=== PATIENT | male | born 1980 | race Caucasian/White ===

== ENCOUNTER 2023-08-24 13:40 | Observation (INO) | payer OTHER ==
--- NOTE | 2023-08-24 13:53 | ED ---
General Adult HPI - General Chief complaint: Abdominal Pain Stated complaint: abd pain Time Seen by Provider: 08/24/23 13:51 Source: patient, RN notes reviewed Mode of arrival: EMS - History of Present Illness Initial comments: 43-year-old male presents to the emergency department for evaluation of abdominal pain with nausea and vomiting. Patient diagnosed with colitis last wee k at [facility]. He had a follow up appointment scheduled for today but was unable to make it due to the pain and vomiting. Patient reports that the pain is diffuse in nature and comes in waves. He states that this is associated with nausea and vomiting. Last bowel movement was yesterday. He does admit to kratom use, last use was yesterday. - Related Data Home Medications Medication Instructions Recorded Confirmed Amoxic-Pot Clav 875-125Mg 1 tab PO Q12HR 08/24/23 08/24/23 [Augmentin 875-125] Ondansetron Odt [Zofran Odt] 4 mg PO Q8HR PRN 08/24/23 08/24/23 Prochlorperazine [Compazine] 10 mg PO Q6H PRN 08/24/23 08/24/23 QUEtiapine FUMARATE [SEROquel XR] 150 mg PO HS 08/24/23 08/24/23 QUEtiapine FUMARATE [SEROquel XR] 300 mg PO HS 08/24/23 08/24/23 QUEtiapine [SEROquel] 25 mg PO DAILY 08/24/23 08/24/23 QUEtiapine [SEROquel] 100 mg PO DAILY 08/24/23 08/24/23 Sucralfate [Carafate] 1 gm PO ACHS 08/24/23 08/24/23 clonazePAM [KlonoPIN] 1 mg PO BID PRN 08/24/23 08/24/23 Allergies Allergy/AdvReac Type Severity Reaction Status Date / Time venom-honey bee Allergy Unknown Verified 08/24/23 17:06 [bee venom (honey bee)] Review of Systems ROS Statement: Those systems with pertinent positive or pertinent negative responses have been documented in the HPI. ROS Other: All systems not noted in ROS Statement are negative. Past Medical History Past Medical History: Fibromyalgia, GERD/Reflux, GI Bleed, Renal Disease, Skin Disorder Additional Past Medical History / Comment(s): 09/17/[address] [facility] [place] [facility] with sharp anterior chest pain. He is being admitted with clinical impression of chest pain. 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 colitis History of Any Multi-Drug Resistant Organisms: None Reported Past Surgical History: Heart Catheterization Additional Past Surgical History / Comment(s): 03/2014 normal cardiac cath, urethral repair after tear from kidney stone, nasal reconstruction pmh due to frequent nose bleeds. Past Anesthesia/Blood Transfusion Reactions: No Reported Reaction Additional Past Anesthesia/Blood Transfusion Reaction / Comment(s): patient has never had blood tranfusion Past Psychological History: Anxiety, Depression, Panic Disorder, Schizoaffective Disorder, Schizophrenia Past Alcohol Use History: Occasional Past Drug Use History: Heroin, Marijuana, Methamphetamine, Opiates - Past Family History Father History Unknown: Yes Family Medical History: Hypertension Mother Family Medical History: Diabetes Mellitus, Hypertension Additional Family Medical History / Comment(s): Mother is alive and is 65 yrs. old. Brother(s) Additional Family Medical History / Comment(s): Half brothers x 2 have had ablations for WPW General Exam - General Exam Comments Initial Comments: Visual Physical Exam Vital signs reviewed General: Well-appearing, nontoxic, no acute distress. Head: Normocephalic, atraumatic Eyes: PERRLA, EOMI ENT: Airway patent Chest: Nonlabored breathing Skin: No visual rash, normal skin tone Neuro: Alert and oriented 3 Musculoskeletal: No gross abnormalities Limitations: no limitations General appearance: alert, in distress (d/t pain) Head exam: Present: atraumatic, normocephalic, normal inspection Eye exam: Present: normal appearance, PERRL, EOMI. Absent: scleral icterus, conjunctival injection, periorbital swelling ENT exam: Present: normal exam, mucous membranes moist Neck exam: Present: normal inspection. Absent: tenderness, meningismus, lymphadenopathy Respiratory exam: Present: normal lung sounds bilaterally. Absent: respiratory distress, wheezes, rales, rhonchi, stridor Cardiovascular Exam: Present: regular rate, normal rhythm, normal heart sounds. Absent: systolic murmur, diastolic murmur, rubs, gallop, clicks GI/Abdominal exam: Present: soft, tenderness (Diffuse), normal bowel sounds. Absent: distended, guarding, rebound, rigid Extremities exam: Present: normal inspection, full ROM, normal capillary refill. Absent: tenderness, pedal edema, joint swelling, calf tenderness Back exam: Present: normal inspection Neurological exam: Present: alert, oriented X3 Psychiatric exam: Present: normal affect, normal mood Skin exam: Present: warm, dry, intact, normal color. Absent: rash Course Vital Signs 08/24/23 08/24/23 13:42 15:07 Temperature 98.2 F 98.1 F Pulse Rate 67 54 L Respiratory 18 20 Rate Blood Pressure 104/58 140/75 O2 Sat by Pulse 100 100 Oximetry Medical Decision Making - Medical Decision Making Was pt. sent in by a medical professional or institution (, PA, FIBERGL[employer] DOWEL DRAWING OPERATOR, urgent care, hospital, or fpc...) When possible be specific @ -No Did you speak to anyone other than the patient for history (EMS, parent, family, police, friend...)? What history was obtained from this source @ -No Did you review nursing and triage notes (agree or disagree)? Why? @ -I reviewed and agree with nursing and triage notes Were old charts reviewed (outside hosp., previous admission, EMS record, old EKG, old radiological studies, urgent care reports/EKG's, fpc records)? Report findings @ -No old charts were reviewed Differential Diagnosis (chest pain, altered mental status, abdominal pain women, abdominal pain men, vaginal bleeding, weakness, fever, dyspnea, syncope, headache, dizziness, GI bleed, back pain, seizure, CVA, palpatations, mental h ealth, musculoskeletal)? @ -Differential Abdominal Pain Men: Appendicitis, cholecystitis, diverticulosis, ischemic bowel, pancreatitis, hepatitis, UTI, gastroenteritis, AAA, incarcerated hernia, bowel obstruction, constipation, inflammatory bowel, hepatitis, peptic ulcer disease, splenic infarction, perforated viscus, testicular torsion, this is not meant to be an all-inclusive list EKG interpreted by me (3pts min.). @ -None X-rays interpreted by me (1pt min.). @ -None done CT interpreted by me (1pt min.). @ -CT abdomen pelvis shows possible focal ileus in inferior pelvis U/S interpreted by me (1pt. min.). @ -None done What testing was considered but not performed or refused? (CT, X-rays, U/S, labs)? Why? @ -None What meds were considered but not given or refused? Why? @ -None Did you discuss the management of the patient with other professionals (professionals i.e. DrSilke, PA, FIBERGL[employer] DOWEL DRAWING OPERATOR, lab, RT, psych nurse, social services designee, international representative, teacher, parking regulation enforcement officer, disease case manager rn)? Give summary @ -Case discussed with Dr. White who is accepting of the admission for intractable vomiting Was smoking cessation discussed for >3mins.? @ -No Was critical care preformed (if so, how long)? @ -No Were there social determinants of health that impacted care today? How? (Homelessness, low income, unemployed, alcoholism, drug addiction, transportation, low edu. Level, literacy, decrease access to med. care, snf, rehab)? @ -No Was there de-escalation of care discussed even if they declined (Discuss DNR or withdrawal of care, Hospice)? DNR status @ -No What co-morbidities impacted this encounter? (DM, HTN, Smoking, COPD, CAD, Cancer, CVA, ARF, Chemo, Hep., AIDS, mental health diagnosis, sleep apnea, morbid obesity)? @ -drug use Was patient admitted / discharged? Hospital course, mention meds given and route, prescriptions, significant lab abnormalities, going to OR and other pertinent info. @ -Admitted. Patient presented to the emergency department for evaluation of abdominal pain. Laboratory studies obtained. CBC shows WBC 6.3, hemoglobin 13.7; CMP shows sodium 140, potassium 3.5, creatinine 0.83, lipase 84; UA shows trace protein; UDS positive for marijuana and tricyclic antidepressants. CT abdomen pelvis obtained which shows a possible focal ileus in the inferior pelvis. Patient received Toradol, Zofran, Compazine, Reglan, morphine for his symptoms which persist. Patient will be admitted to the hospital for intractable abdominal pain and nausea and vomiting. Case was discussed with Dr. Portillo with [facility] who is accepting of the admission. Patient stable at time of admission. Case discussed with Dr. Steward. Undiagnosed new problem with uncertain prognosis? @ -No Drug Therapy requiring intensive monitoring for toxicity (Heparin, Nitro, Ins ulin, Cardizem)? @ -No Were any procedures done? @ -No Diagnosis/symptom? @ -intractable nausea vomiting Acute, or Chronic, or Acute on Chronic? @ -Acute Uncomplicated (without systemic symptoms) or Complicated (systemic symptoms)? @ -Uncomplicated Side effects of treatment? @ -No Exacerbation, Progression, or Severe Exacerbation? @ -No Poses a threat to life or bodily function? How? (Chest pain, [place], [place], pneumonia, PE, COPD, DKA, ARF, appy, cholecystitis, CVA, Diverticulitis, Homicidal, Suicidal, threat to staff... and all critical care pts) @ -No - Lab Data Result diagrams: 08/24/23 14:40 08/24/23 14:40 Lab Results 08/24/23 08/24/23 08/24/23 Range/Units 14:40 14:40 14:40 WBC 6.3 (3.8-10.6) k/uL RBC 4.26 L (4.30-5.90) m/uL Hgb 13.7 (13.0-17.5) gm/dL Hct 39.7 (39.0-53.0) % MCV 93.3 (80.0-100.0) fL MCH 32.2 (25.0-35.0) pg MCHC 34.5 (31.0-37.0) g/dL RDW 12.0 (11.5-15.5) % Plt Count 202 (150-450) k/uL MPV 9.6 Neutrophils % 82 % Lymphocytes % 9 % Monocytes % 7 % Eosinophils % 1 % Basophils % 1 % Neutrophils # 5.2 (1.3-7.7) k/uL Lymphocytes # 0.6 L (1.0-4.8) k/uL Monocytes # 0.4 (0-1.0) k/uL Eosinophils # 0.1 (0-0.7) k/uL Basophils # 0.0 (0-0.2) k/uL Sodium 140 (137-145) mmol/L Potassium 3.5 (3.5-5.1) mmol/L Chloride 105 (98-107) mmol/L Carbon Dioxide 26 (22-30) mmol/L Anion Gap 9 mmol/L BUN 6 L (9-20) mg/dL Creatinine 0.83 (0.66-1.25) mg/dL Est GFR (CKD-EPI)AfAm >90 (>60 ml/min/1.73 sqM) Est GFR (CKD-EPI)NonAf >90 (>60 ml/min/1.73 sqM) Glucose 111 H (74-99) mg/dL Plasma Lactic Acid García 1.8 (0.7-2.0) mmol/L Calcium 9.4 (8.4-10.2) mg/dL Total Bilirubin 0.6 (0.2-1.3) mg/dL AST 23 (17-59) U/L ALT 23 (4-49) U/L Alkaline Phosphatase 61 (38-126) U/L Total Protein 6.9 (6.3-8.2) g/dL Albumin 4.2 (3.5-5.0) g/dL Amylase 60 (30-110) U/L Lipase 84 (23-300) U/L Urine Color Urine Appearance (Clear) Urine pH (5.0-8.0) Ur Specific [place] (1.001-1.035) Urine Protein (Negative) Urine Glucose (UA) (Negative) Urine Ketones (Negative) Urine Blood (Negative) Urine Nitrite (Negative) Urine Bilirubin (Negative) Urine Urobilinogen (<2.0) mg/dL Ur Leukocyte Esterase (Negative) Amorphous Sediment (None) /hpf Urine Mucus (None) /hpf Urine Opiates Screen (NotDetected) Ur Oxycodone Screen (NotDetected) Urine Methadone Screen (NotDetected) Ur Barbiturates Screen (NotDetected) U Tricyclic Antidepress (NotDetected) Ur Phencyclidine Scrn (NotDetected) Ur Amphetamines Screen (NotDetected) U Methamphetamines Scrn (NotDetected) U Benzodiazepines Scrn (NotDetected) Urine Cocaine Screen (NotDetected) U Marijuana (THC) Screen (NotDetected) 08/24/23 Range/Units 14:40 WBC (3.8-10.6) k/uL RBC (4.30-5.90) m/uL Hgb (13.0-17.5) gm/dL Hct (39.0-53.0) % MCV (80.0-100.0) fL MCH (25.0-35.0) pg MCHC (31.0-37.0) g/dL RDW (11.5-15.5) % Plt Count (150-450) k/uL MPV Neutrophils % % Lymphocytes % % Monocytes % % Eosinophils % % Basophils % % Neutrophils # (1.3-7.7) k/uL Lymphocytes # (1.0-4.8) k/uL Monocytes # (0-1.0) k/uL Eosinophils # (0-0.7) k/uL Basophils # (0-0.2) k/uL Sodium (137-145) mmol/L Potassium (3.5-5.1) mmol/L Chloride (98-107) mmol/L Carbon Dioxide (22-30) mmol/L Anion Gap mmol/L BUN (9-20) mg/dL Creatinine (0.66-1.25) mg/dL Est GFR (CKD-EPI)AfAm (>60 ml/min/1.73 sqM) Est GFR (CKD-EPI)NonAf (>60 ml/min/1.73 sqM) Glucose (74-99) mg/dL Plasma Lactic Acid García (0.7-2.0) mmol/L Calcium (8.4-10.2) mg/dL Total Bilirubin (0.2-1.3) mg/dL AST (17-59) U/L ALT (4-49) U/L Alkaline Phosphatase (38-126) U/L Total Protein (6.3-8.2) g/dL Albumin (3.5-5.0) g/dL Amylase (30-110) U/L Lipase (23-300) U/L Urine Color Yellow Urine Appearance Turbid (Clear) Urine pH 8.5 H (5.0-8.0) Ur Specific [place] 1.017 (1.001-1.035) Urine Protein Trace H (Negative) Urine Glucose (UA) Negative (Negative) Urine Ketones Negative (Negative) Urine Blood Negative (Negative) Urine Nitrite Negative (Negative) Urine Bilirubin Negative (Negative) Urine Urobilinogen <2.0 (<2.0) mg/dL Ur Leukocyte Esterase Negative (Negative) Amorphous Sediment Occasional H (None) /hpf Urine Mucus Many H (None) /hpf Urine Opiates Screen Not Detected (NotDetected) Ur Oxycodone Screen Not Detected (NotDetected) Urine Methadone Screen Not Detected (NotDetected) Ur Barbiturates Screen Not Detected (NotDetected) U Tricyclic Antidepress Detected H (NotDetected) Ur Phencyclidine Scrn Not Detected (NotDetected) Ur Amphetamines Screen Not Detected (NotDetected) U Methamphetamines Scrn Not Detected (NotDetected) U Benzodiazepines Scrn Not Detected (NotDetected) Urine Cocaine Screen Not Detected (NotDetected) U Marijuana (THC) Screen Detected H (NotDetected) Disposition Clinical Impression: Ileus, Intractable nausea and vomiting Disposition: ADMITTED IP TO THIS [facility] Condition: Stable Is patient prescribed a controlled substance at d/c from ED?: No Referrals: Gagan Muñiz MD [REFERRING] - 1-2 days
[2023-08-24] MEDS ORDERED: KETOROLAC 15 MG/ML 1 ML VIAL IVP STA (14:29)
[2023-08-24] MEDS ORDERED: PROCHLORPERAZINE INJ 10 MG/2 ML VIAL IVP STA (14:29)
[2023-08-24 14:49] LABS: Basophils % (A) 1 %; Eosinophils # (A) 0.1 k/uL (0-0.7); Eosinophils % (A) 1 %; HCT 39.7 % (39.0-53.0); HGB 13.7 gm/dL (13.0-17.5); Lymphocytes # (A) 0.6 k/uL (1.0-4.8); Lymphocytes % (A) 9 %; MCH 32.2 pg (25.0-35.0); MCHC 34.5 g/dL (31.0-37.0); MCV 93.3 fL (80.0-100.0); Mean Platelet Volume 9.6; Monocytes # (A) 0.4 k/uL (0-1.0); Monocytes % (A) 7 %; Neutrophils # (A) 5.2 k/uL (1.3-7.7); Neutrophils % (A) 82 %; Platelet Count 202 k/uL (150-450); RBC 4.26 m/uL (4.30-5.90); WBC 6.3 k/uL (3.8-10.6)
[2023-08-24 15:09] LABS: ALT 23 U/L (4-49); AST 23 U/L (17-59); African American GFR (CKD) >90 (>60 ml/min/1.73 sqM); Albumin 4.2 g/dL (3.5-5.0); Alkaline Phosphatase 61 U/L (38-126); Amylase 60 U/L (30-110); Anion Gap 9 mmol/L; Blood Urea Nitrogen 6 mg/dL (9-20); Calcium 9.4 mg/dL (8.4-10.2); Carbon Dioxide 26 mmol/L (22-30); Chloride 105 mmol/L (98-107); Glucose 111 mg/dL (74-99); Lipase 84 U/L (23-300); Non-African American GFR(CKD) >90 (>60 ml/min/1.73 sqM); Potassium 3.5 mmol/L (3.5-5.1); Sodium 140 mmol/L (137-145); Total Bilirubin 0.6 mg/dL (0.2-1.3); Total Protein 6.9 g/dL (6.3-8.2)
[2023-08-24] MEDS ORDERED: SODIUM CHLORIDE 0.9% 2,000 ML IV ONE (15:09)
[2023-08-24] MEDS ORDERED: MORPHINE SULFATE 2 MG/ML SYRINGE IVP ONE (15:44)
[2023-08-24] MEDS ORDERED: LORazepam 2 MG/ML INJ IV STA (15:44)
[2023-08-24 15:55] LABS: Amorphous Sediment,Urine Occasional /hpf; Appearance,Urine Turbid (Clear); Bilirubin,Urine Negative (Negative); Blood,Urine Negative (Negative); Color,Urine Yellow; Glucose,Urine (UA) Negative (Negative); Ketones,Urine Negative (Negative); Leukocyte Esterase,Urine Negative (Negative); Mucus,Urine Many /hpf; Nitrite,Urine Negative (Negative); PH, Urine 8.5 (5.0-8.0); Protein,Urine Trace (Negative); Specific Gravity,Urine 1.017 (1.001-1.035); Urobilinogen,Urine <2.0 mg/dL (<2.0)
[2023-08-24 16:03] LABS: Amphetamine Screen,Urine Not Detected (NotDetected); Barbiturate Screen,Urine Not Detected (NotDetected); Benzodiazepines Screen,Urine Not Detected (NotDetected); Cocaine Screen,Urine Not Detected (NotDetected); Methadone Screen, Urine Not Detected (NotDetected); Opiate Screen,Urine Not Detected (NotDetected); Oxycodone Screen, Urine Not Detected (NotDetected); Phencyclidine Screen,Urine Not Detected (NotDetected); Tricyclic Antidepressant,Urine Detected (NotDetected); Urn Cannabinoid Scrn Detected (NotDetected)
--- NOTE | 2023-08-24 16:32 | CT ---
EXAMINATION TYPE: CT abdomen pelvis w con DATE OF EXAM: 08/24/2023 COMPARISON: 03/24/2015 INDICATION: abdominal pain, nausea DLP: 638.6 mGycm, Automated exposure control for dose reduction was used. CONTRAST: 100 mL of Isovue 300. Study performed without Oral Contrast TECHNIQUE: Axial images were obtained from above the diaphragm to the pubic rami in the axial plane a t 5 mm thick sections. Reconstructed images are reviewed on the computer in the coronal plane. FINDINGS: Limited CT sections are obtained the lung bases. The lung bases are clear. CT ABDOMEN: Liver: Normal Spleen: Normal Pancreas: Normal Adrenal glands: The adrenal glands are normal. Gallbladder: Normal Kidneys: No masses are evident. No hydronephrosis is present. No cysts are present. Delayed images were obtained through the kidneys, which remain unremarkable. Aorta: Normal Inferior vena cava: Normal. CT PELVIS: Loops of bowel within the abdomen and pelvis are normal. There are some small bowel loops within the posterior inferior pelvis containing fluid could be some focal ileus. No obstruction is evident. Appendix: Not identified. No dilated tubular structures or inflammatory changes to suggest acute dive rticulitis. Urinary bladder: Normal. Genitourinary structures: Prostate appears normal Osseous structures: No suspicious lytic or sclerotic lesions. IMPRESSION: 1. Mild focal ileus within the inferior posterior pelvis may be present. Bowel otherwise appears unr emarkable. 2. No additional acute abdomen or pelvic abnormality identified.
[2023-08-24] MEDS ORDERED: METOCLOPRAMIDE 5 MG/ML 2 ML VIAL IVP STA (17:22)
[2023-08-24] MEDS ORDERED: ACETAMINOPHEN TAB 325 MG TAB PO PRN (18:14)
[2023-08-24] MEDS ORDERED: IBUPROFEN 400 MG TAB PO PRN (18:14)
[2023-08-24] MEDS ORDERED: NALOXONE 0.4 MG/ML 1 ML VIAL IV PRN (18:14)
[2023-08-24] MEDS: SODIUM CHLORIDE 0.9% 1,000 ML IV SCH (20:05)
[2023-08-24] MEDS ORDERED: clonazePAM 1 MG TAB PO PRN (22:26)
[2023-08-24] MEDS ORDERED: QUEtiapine 100 MG TAB PO SCH (22:30)
[2023-08-24] MEDS ORDERED: QUETIAPINE FUMARATE 150 MG PO SCH (22:30)
[2023-08-24] MEDS: KETOROLAC 15 MG/ML 1 ML VIAL IVP PRN (22:36)
[2023-08-25] MEDS: MORPHINE SULFATE 4 MG/ML SYRINGE IV PRN ×3 (00:26→07:54)
--- NOTE | 2023-08-25 02:31 | P.HPIM ---
History of Present Illness H&P Date: 08/24/23 Chief Complaint: Nausea vomiting 43-year-old male coming in due to repeated nausea vomiting. He reports that his symptoms started over the weekend where on Tuesday he went to [facility] was diagnosed with colitis he was eventually discharged and was given some antibiotics. His symptoms continue to progress he was supposed to go follow-up with them today however due to repeated nausea vomiting and abdominal pain he decided to come in here which we were nearest hospital.. Denies any fevers or chills however he does report repeated nausea vomiting nonbloody sometimes with some greenish color. He reports diffuse abdominal pain 7 out of 10 in severity with constipation last bowel movement was Tuesday however he still passing gases denies any abdominal distention. Again he denies any GI bleeding denies any coughing upper respiratory infection symptoms denies any fevers or chills He does admit to vaping and marijuana smoking denies any heavy alcohol review of systems Pertinent positives as noted in HPI. All other systems were reviewed and are negative on exam Constitutional: No acute distress, conversant, pleasant Eyes: Anicteric sclerae, moist conjunctiva, Pupils equal round reactive to light ENMT: NC/AT Oropharynx clear, no erythema, or exudates Neck: Supple, no masses, or JVD No carotid bruits No thyromegaly Lungs: Clear to auscultation Clear to percussion Normal respiratory effort, no accessory muscle use Cardiovascular: Heart regular in rate and rhythm, No murmurs, gallops, or rubs No peripheral edema Abdominal: Soft Nontender, no guarding, rebound or rigidity Abdomen moving with respiration Normoactive bowel sounds No hepatomegaly, No splenomegaly No palpable mass Extremities: No digital cyanosis No clubbing Pedal pulses intact and symmetrical Radial pulses intact and symmetrical No calf tenderness Psychiatric: Alert and oriented to person, place and time Appropriate affect fair judgement Neuro Muscles Strength 5/5 in all 4 extremities Sensation to light touch grossly present throughout Cranial nerves II-XII grossly intact Lymphatics: no palpable cervical or supraclavicular lymph nodes By Past Medical History Past Medical History: Fibromyalgia, GERD/Reflux, GI Bleed, Renal Disease, Skin Disorder Additional Past Medical History / Comment(s): 09/17/15 Pt presented to [facility] ER with sharp anterior chest pain. He is being admitted with clinical impression of chest pain. 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 colitis History of Any Multi-Drug Resistant Organisms: None Reported Past Surgical History: Heart Catheterization Additional Past Surgical History / Comment(s): 03/2014 normal cardiac cath, urethral repair after tear from kidney stone, nasal reconstruction pmh due to frequent nose bleeds. Past Anesthesia/Blood Transfusion Reactions: No Reported Reaction Additional Past Anesthesia/Blood Transfusion Reaction / Comment(s): patient has never had blood tranfusion Past Psychological History: Anxiety, Depression, Panic Disorder, Schizoaffective Disorder, Schizophrenia Past Alcohol Use History: Occasional Past Drug Use History: Heroin, Marijuana, Methamphetamine, Opiates - Past Family History Father History Unknown: Yes Family Medical History: Hypertension Mother Family Medical History: Diabetes Mellitus, Hypertension Additional Family Medical History / Comment(s): Mother is alive and is 65 yrs. old. Brother(s) Additional Family Medical History / Comment(s): Half brothers x 2 have had ablations for WPW Medications and Allergies Home Medications Medication Instructions Recorded Confirmed Type Amoxic-Pot Clav 875-125Mg 1 tab PO Q12HR 08/24/23 08/24/23 History [Augmentin 875-125] Ondansetron Odt [Zofran Odt] 4 mg PO Q8HR PRN 08/24/23 08/24/23 History Prochlorperazine [Compazine] 10 mg PO Q6H PRN 08/24/23 08/24/23 History QUEtiapine FUMARATE [SEROquel XR] 150 mg PO HS 08/24/23 08/24/23 History QUEtiapine FUMARATE [SEROquel XR] 300 mg PO HS 08/24/23 08/24/23 History QUEtiapine [SEROquel] 25 mg PO DAILY 08/24/23 08/24/23 History QUEtiapine [SEROquel] 100 mg PO DAILY 08/24/23 08/24/23 History Sucralfate [Carafate] 1 gm PO ACHS 08/24/23 08/24/23 History clonazePAM [KlonoPIN] 1 mg PO BID PRN 08/24/23 08/24/23 History Allergies Allergy/AdvReac Type Severity Reaction Status Date / Time venom-honey bee Allergy Unknown Verified 08/24/23 17:06 [bee venom (honey bee)] Physical Exam Vitals: Vital Signs Temp Pulse Resp BP Pulse Ox 08/24/23 20:28 99.1 F 60 18 125/75 99 08/24/23 17:34 69 18 129/81 99 08/24/23 15:07 98.1 F 54 L 20 140/75 100 08/24/23 13:42 98.2 F 67 18 104/58 100 Intake and Output 08/24/23 08/24/23 08/24/23 06:59 14:59 22:59 Other: Weight 67.132 kg Results CBC & Chem 7: 08/24/23 14:40 08/24/23 14:40 Labs: Abnormal Lab Results - Last 24 Hours (Table) 08/24/23 08/24/23 08/24/23 Range/Units 14:40 14:40 14:40 RBC 4.26 L (4.30-5.90) m/uL Lymphocytes # 0.6 L (1.0-4.8) k/uL BUN 6 L (9-20) mg/dL Glucose 111 H (74-99) mg/dL Urine pH 8.5 H (5.0-8.0) Urine Protein Trace H (Negative) Amorphous Sediment Occasional H (None) /hpf Urine Mucus Many H (None) /hpf U Tricyclic Antidepress Detected H (NotDetected) U Marijuana (THC) Screen Detected H (NotDetected) Assessment and Plan Assessment: 43-year-old male coming in with repeated nausea vomiting abdominal pain and constipation I discussed case with the doctor and accepted the admission for refractory nausea vomiting with underlying ileus with anticipated length of stay less than 2 midnights Ileus with repeat nausea vomiting Symptom control IV fluid hydration normal saline 75 cc/h Zofran as needed General surgery consultation CAT scan of the abdomen with suggestive of mild focal ileus Pain control with morphine IV push as needed Blood work overall unremarkable BUN 6 creatinine 0.8 Sodium 140 potassium 3.5 White count 6.3 hemoglobin 13.7 Full code DVT prophylaxis heparin subcu 3 times daily
[2023-08-25] MEDS: SUCRALFATE 1 GM TAB PO SCH ×2 (06:18→12:16)
[2023-08-25] MEDS: SODIUM CHLORIDE 0.9% 1,000 ML IV SCH (06:19)
[2023-08-25] MEDS ORDERED: HEPARIN SODIUM,PORCINE 5,000 UNIT/ML 1 ML VIAL SQ SCH (08:00)
[2023-08-25] MEDS ORDERED: QUEtiapine 200 MG TAB PO SCH (09:00)
[2023-08-25] MEDS ORDERED: QUEtiapine 25 MG TAB PO SCH (09:00)
[2023-08-25] MEDS: KETOROLAC 15 MG/ML 1 ML VIAL IVP PRN (11:06)
[2023-08-25 12:35] VITALS: RESP 20
--- NOTE | 2023-08-25 13:03 | P.PN ---
Subjective Progress Note Date: 08/25/23 Patient is a 43-year-old male with a past medical history of marijuana use and vaping who was recently at [facility] where he was diagnosed with colitis and discharged on antibiotics and told to follow-up with GI. He comes back to the ED today due to intractable nausea vomiting. CT abdomen and pelvis showed mild ileus. Patient seen this morning. He states that he is feeling better today compared to yesterday. Patient states that he has not had a bowel movement. He is not sure if he passed any flatus. He states that he can go home if I discharged him on some pain medications. I also did explain to the patient that I have to hold off on his morphine as it can worsen his ileus. I also encouraged the patient to ambulate. 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 Patient is denying significant marijuana use. However I do have a strong suspicion that patient may have cyclic vomiting syndrome from marijuana. Will discontinue the IV morphine IV Toradol only for pain Encourage ambulation. If patient passes gas or has a bowel movement we will plan on discharge. Patient's labs are unremarkable IV antiemetics for nausea vomiting Mood disorder Continue with Seroquel DVT prophylaxis: Encourage early ambulation and subcu heparin Objective - Vital Signs Vital signs: Vital Signs Temp 98.1 F 08/25/23 12:20 Pulse 69 08/25/23 12:20 Resp 20 08/25/23 12:20 BP 113/77 08/25/23 12:20 Pulse Ox 96 08/25/23 12:20 FiO2 Intake & Output 08/24/23 08/25/23 08/25/23 18:59 06:59 18:59 Weight 67.132 kg 67.132 kg Other: # Voids 1 - Labs CBC & Chem 7: 08/24/23 14:40 08/24/23 14:40 Labs: Abnormal Lab Results - Last 24 Hours (Table) 08/24/23 08/24/23 08/24/23 Range/Units 14:40 14:40 14:40 RBC 4.26 L (4.30-5.90) m/uL Lymphocytes # 0.6 L (1.0-4.8) k/uL BUN 6 L (9-20) mg/dL Glucose 111 H (74-99) mg/dL Urine pH 8.5 H (5.0-8.0) Urine Protein Trace H (Negative) Amorphous Sediment Occasional H (None) /hpf Urine Mucus Many H (None) /hpf U Tricyclic Antidepress Detected H (NotDetected) U Marijuana (THC) Screen Detected H (NotDetected)
--- NOTE | 2023-08-25 13:24 | P.DS ---
Providers Date of admission: 08/24/23 18:16 Attending physician: Chel White MD Consults: 08/25/23 02:25 Consult Physician Routine Consulting Provider: Rodrigo Osborn Consult Reason/Comments: ileus Do you want consulting provider notified?: Yes, Notify in am Primary care physician: Stated None Hospital Course: Discharge Diagnosis: Intractable nausea and vomiting Mood disorder Hospital Course: Patient is a 43-year-old male with a past medical history of marijuana use and vaping who was recently at [facility] where he was diagnosed with colitis and discharged on antibiotics and told to follow-up with GI. He comes back to the ED today due to intractable nausea vomiting. CT abdomen and pelvis showed mild ileus. I doubt the mild ileus is causing his nausea vomiting. I believe his intractable nausea vomiting could be due to marijuana even though patient claims that he is not a heavy marijuana smoker. Prior to discharge patient did pass gas. Patient does have a follow-up appointment with GI. Unfortunately no GI available at this time at our hospital. Patient deemed stable for discharge. Patient did request for prescription pain meds on discharge and I did tell patie nt that he does not meet criteria for prescription pain meds. I did instruct the patient to ambulate is much as possible to prevent ileus. Patient seen and examined at bedside on 08/25/2023.[] Vital signs reviewed and stable. 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 Patient Condition at Discharge: Stable Plan - Discharge Summary Discharge Rx Participant: No New Discharge Prescriptions: Continue QUEtiapine [SEROquel] 25 mg PO DAILY QUEtiapine [SEROquel] 100 mg PO DAILY QUEtiapine FUMARATE [SEROquel XR] 300 mg PO HS Sucralfate [Carafate] 1 gm PO ACHS clonazePAM [KlonoPIN] 1 mg PO BID PRN PRN Reason: Anxiety Ondansetron Odt [Zofran ODT] 4 mg PO Q8HR PRN PRN Reason: Nausea QUEtiapine FUMARATE [SEROquel XR] 150 mg PO HS Prochlorperazine [Compazine] 10 mg PO Q6H PRN PRN Reason: Nausea Discontinued Amoxic-Pot Clav 875-125Mg [Augmentin 875-125] 1 tab PO Q12HR Discharge Medication List Ondansetron Odt [Zofran ODT] 4 mg PO Q8HR PRN 08/24/23 [History] Prochlorperazine [Compazine] 10 mg PO Q6H PRN 08/24/23 [History] QUEtiapine FUMARATE [SEROquel XR] 150 mg PO HS 08/24/23 [History] QUEtiapine FUMARATE [SEROquel XR] 300 mg PO HS 08/24/23 [History] QUEtiapine [SEROquel] 25 mg PO DAILY 08/24/23 [History] QUEtiapine [SEROquel] 100 mg PO DAILY 08/24/23 [History] Sucralfate [Carafate] 1 gm PO ACHS 08/24/23 [History] clonazePAM [KlonoPIN] 1 mg PO BID PRN 08/24/23 [History] Follow up Appointment(s)/Referral(s): Gagan Muñiz MD [REFERRING] - 1-2 days Discharge Disposition: HOME SELF-CARE
--- NOTE | 2023-08-25 13:44 | P.GSCN ---
History of Present Illness Consult date: 08/25/23 History of present illness: CHIEF COMPLAINT: Abdominal pain HISTORY OF PRESENT ILLNESS: This is a 43-year-old male who presented to the hospital with complaints of abdominal pain with vomiting for the past 2 months. He reports that he is vomiting every day. He describes the pain that it wraps around the abdomen. He reports that he can feel little the pain move across the abdomen. Patient reports he has been having bowel movements. Initially he was constipated and then did have diarrhea. The pain becomes very severe at times. Patient has a history of IBS and was recently diagnosed with colitis last week at [facility]. He was also diagnosed with a UTI and collapsed lung. He has been on antibiotics outpatient. Patient reports a prior history of intussusception about 15 years ago. He reports that pain does feel similar to what he is experiencing. Last colonoscopy was at that time. He denies any abdominal surgeries. He did have a low-grade temperature of 100.1. CT scan abdomen pelvis had shown evidence of possible ileus. 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 REVIEW OF SYSTEMS: CONSTITUTIONAL: Denies fever or chills. HEENT: Denies blurred vision, vision changes, or eye pain. Denies hemoptysis CARDIOVASCULAR: Denies chest pain or pressure. RESPIRATORY: No shortness of breath. GASTROINTESTINAL: See HPI for pertinent findings HEMATOLOGIC: Denies bleeding disorders. GENITOURINARY: Denies any blood in urine or increased urinary frequency. SKIN: Denies pruitis. Denies rash. PHYSICAL EXAM: VITAL SIGNS: Reviewed GENERAL: Well-developed in no acute distress. HEENT: No sclera icterus. Extraocular movements grossly intact. Moist buccal mucosa. Head is atraumatic, normocephalic. No nasal drainage. ABDOMEN: Soft. Nondistended. Tenderness with palpation across the lower abdomen NEUROLOGIC: Alert and oriented. Cranial nerves II through XII grossly intact. LABORATORY DATA: WBC 6.3 Hgb 13.7 platelets 202 Sodium 140 potassium 3.5 creatinine 0.83 Lactic acid 1.8 Total bilirubin 0.6 AST 23 ALT 23 alk phos 61 lipase 84 Urine drug screen positive for tricyclic antidepressants and marijuana IMAGING: CT scan abdomen pelvis reports mild focal ileus within the inferior posterior pelvis may be present. Bowel otherwise appears unremarkable. No additional acute abdomen or pelvic abnormality identified. ASSESSMENT: 1. Abdominal pain with vomiting 2. Ileus 3. UTI receiving antibiotic treatment outpatient 4. History of intussusception and colitis PLAN: -Continue clear liquid diet -Continue IV fluids -Continue treatment for UTI -Continue supportive care -No surgical intervention planned Physician Assisted Living Assistant note has been reviewed by physician. Signing provider agrees with the documented findings, assessment, and plan of care. Past Medical History Past Medical History: Fibromyalgia, GERD/Reflux, GI Bleed, Renal Disease, Skin Disorder Additional Past Medical History / Comment(s): 09/17/15 Pt presented to [facility] ER with sharp anterior chest pain. He is being admitted with clinical impression of chest pain. 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 colitis History of Any Multi-Drug Resistant Organisms: None Reported Past Surgical History: Heart Catheterization Additional Past Surgical History / Comment(s): 03/2014 normal cardiac cath, urethral repair after tear from kidney stone, nasal reconstruction pmh due to frequent nose bleeds. Past Anesthesia/Blood Transfusion Reactions: No Reported Reaction Additional Past Anesthesia/Blood Transfusion Reaction / Comm: patient has never had blood tranfusion Past Psychological History: Anxiety, Depression, Panic Disorder, Schizoaffective Disorder, Schizophrenia Past Alcohol Use History: Occasional Past Drug Use History: Heroin, Marijuana, Methamphetamine, Opiates - Past Family History Father History Unknown: Yes Family Medical History: Hypertension Mother Family Medical History: Diabetes Mellitus, Hypertension Additional Family Medical History / Comment(s): Mother is alive and is 65 yrs. old. Brother(s) Additional Family Medical History / Comment(s): Half brothers x 2 have had ablations for WPW Medications and Allergies Home Medications Medication Instructions Recorded Confirmed Type Ondansetron Odt [Zofran ODT] 4 mg PO Q8HR PRN 08/24/23 08/24/23 History Prochlorperazine [Compazine] 10 mg PO Q6H PRN 08/24/23 08/24/23 History QUEtiapine FUMARATE [SEROquel XR] 150 mg PO HS 08/24/23 08/24/23 History QUEtiapine FUMARATE [SEROquel XR] 300 mg PO HS 08/24/23 08/24/23 History QUEtiapine [SEROquel] 25 mg PO DAILY 08/24/23 08/24/23 History QUEtiapine [SEROquel] 100 mg PO DAILY 08/24/23 08/24/23 History Sucralfate [Carafate] 1 gm PO ACHS 08/24/23 08/24/23 History clonazePAM [KlonoPIN] 1 mg PO BID PRN 08/24/23 08/24/23 History Allergies Allergy/AdvReac Type Severity Reaction Status Date / Time venom-honey bee Allergy Unknown Verified 08/24/23 17:06 [bee venom (honey bee)] Surgical - Exam Vital Signs Temp Pulse Resp BP Pulse Ox 98.2 F 67 18 104/58 100 08/24/23 13:42 08/24/23 13:42 08/24/23 13:42 08/24/23 13:42 08/24/23 13:42 Results - Labs 08/24/23 14:40 08/24/23 14:40 Abnormal Lab Results - Last 24 Hours (Table) 08/24/23 08/24/23 08/24/23 Range/Units 14:40 14:40 14:40 RBC 4.26 L (4.30-5.90) m/uL Lymphocytes # 0.6 L (1.0-4.8) k/uL BUN 6 L (9-20) mg/dL Glucose 111 H (74-99) mg/dL Urine pH 8.5 H (5.0-8.0) Urine Protein Trace H (Negative) Amorphous Sediment Occasional H (None) /hpf Urine Mucus Many H (None) /hpf U Tricyclic Antidepress Detected H (NotDetected) U Marijuana (THC) Screen Detected H (NotDetected) Diabetes panel 08/24/23 Range/Units 14:40 Sodium 140 (137-145) mmol/L Potassium 3.5 (3.5-5.1) mmol/L Chloride 105 (98-107) mmol/L Carbon Dioxide 26 (22-30) mmol/L BUN 6 L (9-20) mg/dL Creatinine 0.83 (0.66-1.25) mg/dL Glucose 111 H (74-99) mg/dL Calcium 9.4 (8.4-10.2) mg/dL AST 23 (17-59) U/L ALT 23 (4-49) U/L Alkaline Phosphatase 61 (38-126) U/L Total Protein 6.9 (6.3-8.2) g/dL Albumin 4.2 (3.5-5.0) g/dL Calcium panel 08/24/23 Range/Units 14:40 Calcium 9.4 (8.4-10.2) mg/dL Albumin 4.2 (3.5-5.0) g/dL Pituitary panel 08/24/23 Range/Units 14:40 Sodium 140 (137-145) mmol/L Potassium 3.5 (3.5-5.1) mmol/L Chloride 105 (98-107) mmol/L Carbon Dioxide 26 (22-30) mmol/L BUN 6 L (9-20) mg/dL Creatinine 0.83 (0.66-1.25) mg/dL Glucose 111 H (74-99) mg/dL Calcium 9.4 (8.4-10.2) mg/dL Adrenal panel 08/24/23 Range/Units 14:40 Sodium 140 (137-145) mmol/L Potassium 3.5 (3.5-5.1) mmol/L Chloride 105 (98-107) mmol/L Carbon Dioxide 26 (22-30) mmol/L BUN 6 L (9-20) mg/dL Creatinine 0.83 (0.66-1.25) mg/dL Glucose 111 H (74-99) mg/dL Calcium 9.4 (8.4-10.2) mg/dL Total Bilirubin 0.6 (0.2-1.3) mg/dL AST 23 (17-59) U/L ALT 23 (4-49) U/L Alkaline Phosphatase 61 (38-126) U/L Total Protein 6.9 (6.3-8.2) g/dL Albumin 4.2 (3.5-5.0) g/dL
[2023-08-25 13:52] VITALS: BP 117/66; PULSE 97; TEMP 98
== END 2023-08-25 17:25 | disposition home or self-care (01) ==
LOC: EC 13:40 → 6NMEDSUR 18:16 → 4SSUR 08-25 04:51
PROVIDERS: ADMIT Internal Medicine; ATTEND Internal Medicine
DX: K56.7 Ileus, unspecified (principal); K58.2 Mixed irritable bowel syndrome; N39.0 Urinary tract infection, site not specified; F32.A Depression, unspecified; F25.9 Schizoaffective disorder, unspecified; F41.0 Panic disorder [episodic paroxysmal anxiety]; F41.9 Anxiety disorder, unspecified; F12.90 Cannabis use, unspecified, uncomplicated; Z79.899 Other long term (current) drug therapy; Z91.030 Bee allergy status; Z87.19 Personal history of other diseases of the digestive system
CPT/HCPCS: 96376 ×2; 96361 ×2; 96372; 96374; 96375; 99285; 36415; 80053; 82150; 83605; 83690; 85025; 81001; 80306; 74177; G0378 ×3; J2060; J2270 ×2; J0780; J1644; J2765; J1885 ×2; Q9967